=== PATIENT | male | born 1990 ===

== ENCOUNTER 2019-11-09 20:02 | Emergency (ER) | payer SELFPAY ==
--- NOTE | 2019-11-09 21:26 | Event Note ---
ED Screening Note Date of service: 11/09/19 Time: 21:22 ED Screening Note: This is a 29 y.o. M. that presents to the ER with perianal pain and urgency for 5 days. No PMH Reports pain improved after taking a shower and while sitting. Denies urinary frequency, dysuria, penile discharge, fever, and chills. This initial assessment/diagnostic orders/clinical plan/treatment(s) is/are subject to change based on patients health status, clinical progression and re- assessment by fellow clinical providers in the ED. Further treatment and workup at subsequent clinical providers discretion. Patient/guardian urged not to elope from the ED as their condition may be serious if not clinically assessed and managed. Initial orders include: UA
[2019-11-09 22:31] LABS: Bilirubin,Urine NEG (Negative); Blood,Urine NEG (Negative); Color,Urine Yellow (Yellow); Protein,Urine <15 mg/dL mg/dL (Negative); Urobilinogen,Urine < 2.0 mg/dL (<2.0); WBC,Urine < 1.0 /HPF (0.0-6.0)
[2019-11-10] MEDS ORDERED: KETOROLAC 30 MG/1 ML INJ IV ONE (03:12)
[2019-11-10 03:53] LABS: Basophils % (Auto) 0.8 % (0.0-1.8); Eosinophils # (Auto) 0.1 K/mm3 (0.0-0.4); Eosinophils % (Auto) 2.4 % (0.0-4.3); Hematocrit 38.1 % (35.5-45.6); Hemoglobin 13.1 gm/dl (11.8-15.2); Lymphocytes # (Auto) 2.2 K/mm3 (1.2-5.4); Lymphocytes % (Auto) 49.5 % (13.4-35.0); Mean Corpuscular HGB Conc 34 % (32-34); Mean Corpuscular Volume 82 fl (84-94); Monocytes # (Auto) 0.4 K/mm3 (0.0-0.8); Monocytes % (Auto) 8.9 % (0.0-7.3); Platelet Count 202 K/mm3 (140-440); Red Blood Count 4.64 M/mm3 (3.65-5.03); Red Cell Distribution Width 13.5 % (13.2-15.2)
--- NOTE | 2019-11-10 04:08 | Cat Scan Report ---
CT abdomen pelvis w con INDICATION / CLINICAL INFORMATION: MAIN: LT SIDED abdominal pain. NAUSEA. 100 ML OMNIPAQUE 300. TECHNIQUE: Axial CT imaging of abdomen and pelvis was obtained with IV contrast. Coronal and sagittal reformatte d imaging obtained and reviewed. All CT scans at this location are performed using CT dose reduction for ALARA by means of automated exposure control. COMPARISON: None available. FINDINGS: CT abdomen with contrast demonstrates normal appearance of the liver, spleen, pancreas, kidneys, and adrenal glands. Grossly normal appearance of the gallbladder. No biliary dilatation. No intrarenal ca lculi, hydronephrosis, or renal mass noted. CT pelvis with contrast is unremarkable. No pelvic mass, free fluid, or focal inflammatory change. Mo derate amount retained stool is noted throughout the colon. No fecal impaction. A normal appendix is present in the right lower quadrant. GI tract is grossly unremarkable other than mild constipation. Visualized lung bases are clear. No significant acute osseous abnormality. IMPRESSION: 1. No acute finding within the abdomen or pelvis. 2. Probable mild constipation. Signer Name: Concepcion Guadarrama MD Signed: 11/10/2019 4:04 AM Workstation Name: [id number]
[2019-11-10 04:19] LABS: Alanine Aminotransferase 24 units/L (7-56); Albumin 4.5 g/dL (3.9-5); BUN/Creatinine Ratio 11; Blood Urea Nitrogen 10 mg/dL (9-20); Calcium 9.8 mg/dL (8.4-10.2); Hemolysis Index 5
--- NOTE | 2019-11-10 05:14 | Emergency Department Report ---
ED Abdominal Pain HPI - General Chief Complaint: Abdominal Pain Stated Complaint: ABD PAIN Time Seen by Provider: 11/09/19 21:21 Source: patient Mode of arrival: Ambulatory Limitations: No Limitations - History of Present Illness Initial Comments: Patient is a 29-year-old -[place] male with no past medical history who presents to the ED with complaint of acute onset persistent suprapubic pressure and pain that radiates to the perineum area and low back for the last 1 week with headache. Patient denies fever, chills, testicular pain, dysuria, urinary frequency and urgency, hematuria, nausea, vomiting, diarrhea, dizziness, syncope, traumatic injury, heavy lifting, numbness and tingling or weakness of upper and lower extremities bilaterally, urinary or bowel incontinence and saddle paresthesia. MD Complaint: abdominal pain, other (perineum pressure) -: Sudden, week(s) (1) Location: suprapubic Radiation: back (lower) Migration to: no migration Severity scale (0 -10): 3 Quality: aching, fullness Consistency: constant Improves With: nothing Worsens With: nothing Associated Symptoms: denies other symptoms. denies: nausea, vomiting, diarrhea, fever, chills, constipation, dysuria, hematochezia, melena, hematuria - Related Data Previous Rx's Medication Instructions Recorded Last Taken Type Cyclobenzaprine [Flexeril] 10 mg PO Q8H PRN #15 tablet 11/10/19 Unknown Rx Docusate Sodium [Colace CAP] 100 mg PO Q12H PRN #30 capsule 11/10/19 Unknown Rx Naproxen 500 mg PO Q12H PRN #24 tablet 11/10/19 Unknown Rx Ondansetron [Zofran Odt] 4 mg PO Q6HR PRN #15 tab.rapdis 11/10/19 Unknown Rx Allergies Allergy/AdvReac Type Severity Reaction Status Date / Time No Known Allergies Allergy Unverified 11/09/19 21:26 ED Review of Systems ROS: Stated complaint: ABD PAIN Other details as noted in HPI Constitutional: denies: chills, fever Eyes: denies: eye pain, eye discharge, vision change ENT: denies: ear pain, throat pain Respiratory: denies: cough, shortness of breath, wheezing Cardiovascular: denies: chest pain, palpitations Endocrine: no symptoms reported Gastrointestinal: abdominal pain, nausea. denies: diarrhea Genitourinary: denies: urgency, dysuria Musculoskeletal: back pain (lower), arthralgia, myalgia. denies: joint swelling Skin: denies: rash, lesions Neurological: headache. denies: weakness, paresthesias Psychiatric: denies: anxiety, depression Hematological/Lymphatic: denies: easy bleeding, easy bruising ED Past Medical Hx - Past Medical History Previous Medical History?: No - Surgical History Past Surgical History?: No - Social History Smoking Status: Never Smoker Substance Use Type: Marijuana - Medications Home Medications: Home Medications Medication Instructions Recorded Confirmed Last Taken Type Cyclobenzaprine [Flexeril] 10 mg PO Q8H PRN #15 tablet 11/10/19 Unknown Rx Docusate Sodium [Colace CAP] 100 mg PO Q12H PRN #30 capsule 11/10/19 Unknown Rx Naproxen 500 mg PO Q12H PRN #24 tablet 11/10/19 Unknown Rx Ondansetron [Zofran Odt] 4 mg PO Q6HR PRN #15 tab.rapdis 11/10/19 Unknown Rx ED Physical Exam - General Limitations: No Limitations General appearance: alert, in no apparent distress - Head Head exam: Present: atraumatic, normocephalic, normal inspection - Eye Eye exam: Present: normal appearance, PERRL, EOMI Pupils: Present: normal accommodation - ENT ENT exam: Present: normal exam, normal orophraynx, mucous membranes moist, TM's normal bilaterally, normal external ear exam - Neck Neck exam: Present: normal inspection, full ROM - Respiratory Respiratory exam: Present: normal lung sounds bilaterally. Absent: respiratory distress, wheezes, rales, chest wall tenderness, accessory muscle use, prolonged expiratory - Cardiovascular Cardiovascular Exam: Present: regular rate, normal rhythm, normal heart sounds. Absent: systolic murmur, diastolic murmur, rubs, gallop - GI/Abdominal GI/Abdominal exam: Present: soft, normal bowel sounds. Absent: distended, tenderness, guarding, hyperactive bowel sounds, hypoactive bowel sounds - Extremities Exam Extremities exam: Present: normal inspection, full ROM, normal capillary refill - Back Exam Back exam: Present: normal inspection, full ROM. Absent: tenderness, muscle spasm, vertebral tenderness - Neurological Exam Neurological exam: Present: alert, oriented X3, CN II-XII intact, normal gait - Psychiatric Psychiatric exam: Present: normal affect, normal mood - Skin Skin exam: Present: warm, dry, intact, normal color. Absent: rash ED Course Vital Signs 11/09/19 11/10/19 20:15 01:41 Temperature 98.4 F 98.1 F Pulse Rate 87 73 Respiratory 18 18 Rate Blood Pressure 145/77 Blood Pressure 120/79 [Left] O2 Sat by Pulse 98 100 Oximetry ED Medical Decision Making - Lab Data Result diagrams: 11/10/19 03:18 11/10/19 03:18 - Radiology Data Radiology results: report reviewed, image reviewed Findings [facility] [address] [place] [address] Cat Scan Report Signed Patient: BALDEMAR MURRAY MR#: [id number] : 1990 Acct:[id number] Age/Sex: 29 / M ADM Date: 11/09/19 Loc: ED Attending Dr: Ordering Physician: JUDY NDIAYE Date of Service: 11/10/19 Procedure(s): CT abdomen pelvis w con Accession Number(s): [id number] cc: JUDY NDIAYE CT abdomen pelvis w con INDICATION / CLINICAL INFORMATION: MAIN: LT SIDED abdominal pain. NAUSEA. 100 ML OMNIPAQUE 300. TECHNIQUE: Axial CT imaging of abdomen and pelvis was obtained with IV contrast. Coronal and sagittal reformatted imaging obtained and reviewed. All CT scans at this location are performed using CT dose reduction for ALARA by means of automated exposure control. COMPARISON: None available. FINDINGS: CT abdomen with contrast demonstrates normal appearance of the liver, spleen, pancreas, kidneys, and adrenal glands. Grossly normal appearance of the gallbladder. No biliary dilatation. No intrarenal calculi, hydronephrosis, or renal mass noted. CT pelvis with contrast is unremarkable. No pelvic mass, free fluid, or focal inflammatory change. Moderate amount retained stool is noted throughout the colon. No fecal impaction. A normal appendix is present in the right lower quadrant. GI tract is grossly unremarkable other than mild constipation. Visualized lung bases are clear. No significant acute osseous abnormality. IMPRESSION: 1. No acute finding within the abdomen or pelvis. 2. Probable mild constipation. Signer Name: Conecpcion Guadarrama MD Signed: 11/10/2019 4:04 AM Workstation Name: [id number] Transcribed By: Dictated By: Concepcion Guadarrama MD Electronically Authenticated By: Concepcion Guadarrama MD Signed Date/Time: 11/10/19403 DD/ 9 TD/TT: - Medical Decision Making This is a 29-year-old male who presented to the ED with complaint of diffuse low abdominal pain, that radiates to the low back and perineal area for 1 week with a headache. In the ED, patient is alert and oriented x3 and is not in distress. Patient was treated for pain in the ED. Lab test results were reviewed and are all nonactionable. Abdomen pelvis CT scan with contrast shows no acute abnormalities except constipation. Patient was discharged home on pain medications and muscle relaxants and advised to follow-up with his primary care physician in 5 to 7 days for reevaluation. Patient was advised to return to the ED immediately if symptoms get worse. - Differential Diagnosis constipation; colitis; kidney stones; UTI; Prostatitis; cystitis Critical care attestation.: If time is entered above; I have spent that time in minutes in the direct care of this critically ill patient, excluding procedure time. ED Disposition Clinical Impression: Abdominal pain in male, Spasm of muscle of lower back Constipation Qualifiers: Constipation type: other constipation type Qualified Code(s): K59.09 - Other constipation Disposition: - TO HOME OR SELFCARE Is pt being admited?: No Does the pt Need Aspirin: No Condition: Stable Instructions: Muscle Spasm (ED), Acute Abdominal Pain (ED), Constipation (ED) Additional Instructions: All lab test results are unremarkable, including urinalysis. Abdomen pelvis CT scan without contrast also shows normal findings except for constipation. Therefore take medication as needed with food, drink plenty of fluids and follow-up with your primary care physician in 5 to 7 days for reevaluation or return to the ED immediately if symptoms get worse. Prescriptions: Docusate Sodium [Colace CAP] 100 mg PO Q12H PRN #30 capsule PRN Reason: Constipation Cyclobenzaprine [Flexeril] 10 mg PO Q8H PRN #15 tablet PRN Reason: Muscle Spasm Naproxen 500 mg PO Q12H PRN #24 tablet PRN Reason: Pain , Severe (7-10) Ondansetron [Zofran Odt] 4 mg PO Q6HR PRN #15 tab.rapdis PRN Reason: Nausea Referrals: [facility] [Outside] - 7-10 days Time of Disposition: 05:12 Print Language: ROMANIAN
[2019-11-10 06:15] VITALS: BP 118/78
== END 2019-11-10 06:09 | disposition home or self-care (01) ==
LOC: ED 20:02
DX: R10.9 Unspecified abdominal pain (principal); K59.09 Other constipation; M62.830 Muscle spasm of back; F12.10 Cannabis abuse, uncomplicated; Z79.899 Other long term (current) drug therapy
CPT/HCPCS: 36415; 74177; 80053; 81001; 83690; 85025; 99284; Q9967; J1885